=== PATIENT | female | born 1960 | race Caucasian/White ===

== ENCOUNTER → 2016-10-17 | Outpatient (CLI) | payer OTHER ==
--- NOTE | 2016-10-19 08:51 | XR ---
EXAMINATION TYPE: XR Hip Complete RT DATE OF EXAM: 10/17/2016 1:42 PM CLINICAL HISTORY: pain TECHNIQUE: AP and frogleg views of the right hip are obtained. COMPARISON: None. FINDINGS: There is no acute fracture/dislocation evident. The joint space appears mildly narrowed. The overlying soft tissue appears unremarkable. IMPRESSION: 1. There is no acute fracture or dislocation. ICD 10 NO FRACTURE, INITIAL EVALUATION
== END | disposition home or self-care (01) ==
LOC: RADXRMAIN 13:22
PROVIDERS: ATTEND Internal Medicine
DX: M25.551 Pain in right hip (principal)
CPT/HCPCS: 73502

== ENCOUNTER → 2018-09-29 | Outpatient (CLI) | payer OTHER ==
[2018-09-29 18:43] LABS: T4, Free (Free Thyroxine) 1.1 ng/dL (0.80-1.80)
== END | disposition home or self-care (01) ==
LOC: LABWHC1 11:54
PROVIDERS: ATTEND Internal Medicine
DX: R53.83 Other fatigue (principal); R63.5 Abnormal weight gain
CPT/HCPCS: 36415; 84439; 84443; 84481

== ENCOUNTER → 2019-12-10 | Outpatient (CLI) | payer OTHER ==
--- NOTE | 2019-12-10 11:44 | MR ---
EXAMINATION TYPE: MR lumbar spine wo con DATE OF EXAM: 12/10/2019 COMPARISON: Prior lumbar MRI 08/23/2015 HISTORY: Chronic low back pain, radiates into right buttock TECHNIQUE: Multiplanar, multisequence images of the lumbar spine were acquired. T12-L1: Suspect bilateral nerve sheath diverticula. No disc herniation or foraminal encroachment, no significant spinal stenosis. L1-L2: Normal disc appearance without desiccation. No herniation, protrusion or disc bulging. No ca nal stenosis is present. Foramina are patent bilaterally. L2-L3: Minimal posterior disc bulge without significant stenosis, mild foraminal encroachment. There is mild facet arthropathy. L3-L4: Stable in appearance. Circumferential posterior disc bulge causes slight anterior mass effect on the thecal sac. No significant spinal stenosis. Only mild foraminal encroachment is unchanged. Mil d facet arthropathy. L4-L5: Mild posterior disc bulge, no significant stenosis. There is facet arthropathy, mild foraminal encroachment, no spinal stenosis. L5-S1: Stable appearance. No significant spinal stenosis. Facet arthropathy changes present. No kerry inal encroachment. No disc herniation. Lumbar segments are intact. No paraspinal masses are identified. Conus medullaris has a normal appe arance. Lumbar vertebral bodies show preserved height and alignment. Bone marrow signal is stable. Is multilevel spondylosis with some minimal endplate discogenic marrow signal change. Some loss of disc height and signal at intervertebral levels shows a similar appearance. IMPRESSION: Mild degenerative disc disease, there is facet arthropathy, findings are similar to prior exam. No si gnificant spinal stenosis.
== END | disposition home or self-care (01) ==
LOC: RADMRIMAIN 10:34
PROVIDERS: ATTEND Internal Medicine
DX: M51.36 Other intervertebral disc degeneration, lumbar region (principal); M47.816 Spondylosis without myelopathy or radiculopathy, lumbar region
CPT/HCPCS: 72148

== ENCOUNTER → 2024-06-12 | Outpatient (CLI) | payer OTHER ==
--- NOTE | 2024-06-15 18:10 | MM ---
Reason for Exam: Screening (asymptomatic). Last mammogram was performed 15 year(s) and 11 month(s) ago. Patient History: Menarche at age 10. First Full-Term at age 19. Left ovary removed at age 41. Hysterectomy at age 41. Postmenopausal. Maternal grandmother had breast cancer. Risk Values: Lauryn 5 year model risk: 1.6%. NCI Lifetime model risk: 6.4%. Prior Study Comparison: No prior studies available for comparison. Tissue Density: The breasts are heterogeneously dense, which may obscure small masses. Findings: Analyzed By CAD. No significant mass, suspicious microcalcification, or other discrete abnormality is seen. Asymmetric density subareolar right MLO view and lateral posterior left cc view do not persist on the 3-D images. Overall Assessment: Benign, BI-RAD 2 Management: Screening Mammogram of both breasts in 1 year. . Patient should continue monthly self-breast exams. A clinical breast exam by your physician is recommended on an annual basis. This exam should not preclude additional follow-up of suspicious palpable abnormalities. Note on Lauryn scores and lifetime risk: 1. A Lauryn score greater than 3% is considered moderate risk. If this is the case, consider specialist referral to assess eligibility for a risk reducing agent. 2. If overall lifetime risk for the development of breast cancer is 20% or higher, the patient may qualify for future screening with alternating mammogram and breast MRI. [facility], , 06/15/2024 6:07 PM. Electronically signed and approved by: Sanjay Ordoñez M.D. Radiologist
== END | disposition home or self-care (01) ==
LOC: RADMAMWWP 13:31
PROVIDERS: ATTEND Family Medicine
DX: Z12.31 Encounter for screening mammogram for malignant neoplasm of breast (principal); Z78.0 Asymptomatic menopausal state; Z80.3 Family history of malignant neoplasm of breast; Z90.721 Acquired absence of ovaries, unilateral; R92.333 Mammographic heterogeneous density, bilateral breasts
CPT/HCPCS: 77063; 77067

== ENCOUNTER → 2024-09-30 | Outpatient (CLI) | payer OTHER ==
--- NOTE | 2024-09-30 14:47 | US ---
EXAMINATION TYPE: US carotid duplex BILAT DATE OF EXAM: 09/30/2024 COMPARISON: NONE CLINICAL INDICATION: Female, 63 years old with history of R55 SYNCOPE AND COLLAPSE; SYNCOPE, Hx TIA a nd GA Additional History: R55 Syncope TECHNIQUE: Grayscale, color Doppler and spectral Doppler evaluation of the bilateral carotid systems and vertebral arteries. Indirect Doppler criteria was utilized. FINDINGS: EXAM MEASUREMENTS: RIGHT: Peak Systolic Velocity (PSV) cm/sec ----- Right CCA: 71.4 ----- Right ICA: 76.4 ----- Right ECA: 89.7 ICA/CCA ratio: 1.1 RIGHT: End Diastole cm/sec ----- Right CCA: 17.2 ----- Right ICA: 15.9 ----- Right ECA: 10.1 LEFT: Peak Systolic Velocity (PSV) cm/sec ----- Left CCA: 58.3 ----- Left ICA: 119 ----- Left ECA: 114 ICA/CCA ratio: 2.0 LEFT: End Diastole cm/sec ----- Left CCA: 17.9 ----- Left ICA: 22.6 ----- Left ECA: 11.6 VERTEBRALS (direction of flow): Right Vertebral: Antegrade high flow Left Vertebral: Antegrade low flow Rhythm: Normal [employer] NOTES: elevated ratio on the left side, no significantly elevated velocities or obvious s tenosis seen. Parvus Tardus waveform at the left vertebral artery. Exam limited by deep course of vessels Color Doppler imaging shows patency with blood flow throughout the carotid artery. Spectral waveforms are within normal limits. IMPRESSION: * Right: Less than 50% stenosis of the carotid bifurcation. * Left: Less than 50% stenosis of the carotid bifurcation. * Parvus Tardus waveform at the left vertebral artery, possible proximal stenosis. Consider CTA demetria ogram. Criteria for Assigning % of Stenosis / Diameter reduction (Estimation based on the indirect measurements of the internal carotid artery velocities (ICA PSV). 1. Normal (no stenosis)=ICA PSV < 125 cm/s: ratio < 2.0: ICA EDV<40 cm/s. 2. Less than 50% stenosis=ICA PSV < 125 cm/s: ratio < 2.0: ICA EDV<40 cm/s. 3. 50 to 69% stenosis=ICA PSV of 125 to 230 cm/s: ration 2.0 ? 4.0: ICA EDV 40-100 cm/s. 4. Greater than 70% stenosis to near occlusion= ICA PSV > 230 cm/s: ratio > 4.0: ICA EDV > 100 cm/s. 5. Near occlusion= ICA PSV velocities may be low or undetectable: variable ratio and ICA EDV. 6. Total occlusion=unable to detect flow. [facility], , 09/30/2024 2:45 PM
--- NOTE | 2024-09-30 15:12 | CA ---
Transthoracic Echo Report Name: Alexandra Hay Age: 63 Gender: F : 1960 Exam Date: 09/30/2024 13:57 Exam Location: [facility] Ht (in): 61 Wt (lb): 160 Ordering Physician: Deo Vazquez DO Attending/Referring Phys: Regina Mansfield [facility] [employer] [place]ili Tonya Mcfarland RDCS Procedure CPT: Indications: R55 SYNCOPE AND COLLAPSE Cardiac Hx: Technical Quality: Fair Contrast 1: Total Dose (mL): Contrast 2: Total Dose (mL): MEASUREMENTS (Male / Female) Normal Values 2D ECHO LV Diastolic Diameter PLAX 4.5 cm 4.2 - 5.9 / 3.9 - 5.3 cm LV Systolic Diameter PLAX 2.8 cm IVS Diastolic Thickness 1.1 cm 0.6 - 1.0 / 0.6 - 0.9 cm LVPW Diastolic Thickness 1.2 cm 0.6 - 1.0 / 0.6 - 0.9 cm LV Relative Wall Thickness 0.5 RV Internal Dim ED PLAX 2.9 cm LA Systolic Diameter LX 3.7 cm 3.0 - 4.0 / 2.7 - 3.8 cm LV Diastolic Volume MOD 4C 67.4 cm??? LV Systolic Volume MOD 4C 25.4 cm??? LV Ejection Fraction MOD 4C 62.3 % LV Cardiac Index MOD 4C 1286.6 cm???/min???m??? LV Diastolic Length 4C 7.8 cm LV Systolic Length 4C 6.0 cm LV Diastolic Volume MOD 2C 62.5 cm??? LV Systolic Volume MOD 2C 21.8 cm??? LV Ejection Fraction MOD 2C 65.1 % LV Cardiac Index MOD 2C 1246.8 cm???/min???m??? LV Diastolic Length 2C 7.5 cm LV Systolic Length 2C 6.0 cm LA Volume 52.7 cm??? 18 - 58 / 22 - 52 cm??? LA Volume Index 29.4 cm???/m??? 16 - 28 cm???/m??? M-MODE Aortic Root Diameter MM 2.8 cm DOPPLER AV Peak Velocity 141.3 cm/s AV Peak Gradient 8.0 mmHg MV Area PHT 2.5 cm??? Mitral E Point Velocity 87.4 cm/s Mitral A Point Velocity 91.7 cm/s Mitral E to A Ratio 1.0 MV Deceleration Time 309.5 ms TR Peak Velocity 225.9 cm/s TR Peak Gradient 20.4 mmHg Right Ventricular Systolic Press 25.4 mmHg FINDINGS Left Ventricle Left ventricular ejection fraction is estimated at 55-60 %. Left ventricular cavity size normal. Mildly increased left ventricular wall thickness. Normal left ventricular systolic function with no obvious regional wall motion abnormalities. Right Ventricle Normal right ventricular size and function. Right ventricular systolic pressure within normal limits. Right Atrium Normal right atrial size. No right atrial thrombus or mass seen. Left Atrium Mildly increased left atrial volume. No left atrial thrombus or mass present. Mitral Valve Structurally normal mitral valve. No mitral stenosis,or prolapse.mild mitral regurgitation. Aortic Valve Trileaflet aortic valve. No aortic valve stenosis or regurgitation. Tricuspid Valve Structurally normal tricuspid valve. Mild tricuspid regurgitation. Pulmonic Valve Structurally normal pulmonic valve. No pulmonic regurgitation. Pericardium No pericardial effusion. Aorta Normal size aortic root and proximal ascending aorta. CONCLUSIONS 1. Normal left ventricular size and systolic function 2. Mild mitral and tricuspid regurgitation Previewed by: Dr. Lauren Vick MD (Electronically Signed) Final Date: 30 September 2024 15:11
== END | disposition home or self-care (01) ==
LOC: RADUSWWP 12:40
PROVIDERS: ATTEND Family Medicine
DX: I65.23 Occlusion and stenosis of bilateral carotid arteries (principal); I08.1 Rheumatic disorders of both mitral and tricuspid valves; R55 Syncope and collapse
CPT/HCPCS: 93306; 93880

== ENCOUNTER → 2024-10-14 | Outpatient (CLI) | payer OTHER ==
--- NOTE | 2024-10-14 10:24 | CT ---
EXAMINATION TYPE: CT angio neck DATE OF EXAM: 10/14/2024 COMPARISON: NONE CLINICAL INDICATION: Female, 63 years old with history of I73.89 Other specified peripheral vascular disorder, peripheral vascular disorder, TECHNIQUE: CTA scan of the neck is performed with IV Contrast, patient injected with 100 ML mL of Is ovue 370, axial images are obtained, coronal and sagittal reformatted images are reviewed. 3D recons tructed images are created on an independent workstation and reviewed. NASCET criteria was used in interpretation of this exam? CT DLP: 295.50 mGycm. Automated Exposure Control for Dose Reduction was Utilized. FINDINGS: CTA NECK: Right Carotid System: The common carotid artery and external carotid artery are patent. The carotid bifurcation demonstrate s no evidence of hemodynamically significant stenosis. The remaining portions of the internal carotid artery demonstrate normal size without significant narrowing. Left Carotid System: The common carotid artery and external carotid artery are patent. The carotid bifurcation demonstrate s no evidence of hemodynamically significant stenosis. The remaining portions of the internal carotid artery demonstrate normal size without significant narrowing. Vertebral arteries are patent without evidence hemodynamically significant stenosis. There is a bovine type aortic arch which is normal variant. The origins of the great vessels are irvin nt. No evidence of hemodynamically significant stenosis. Postsurgical changes C4-C6 levels. IMPRESSION: No evidence of dissection of the cervical internal carotid arteries or vertebral arteries or any evid ence of significant stenosis at the carotid bifurcations. [facility], , 10/14/2024 10:21 AM
== END | disposition home or self-care (01) ==
LOC: RADCTMAIN 09:04
PROVIDERS: ATTEND Family Medicine
DX: I73.89 Other specified peripheral vascular diseases (principal)
CPT/HCPCS: 70498; Q9967